=== PATIENT | female | born 1975 | race Caucasian/White ===

== ENCOUNTER → 2017-04-26 | Outpatient (CLI) | payer MEDICAID ==
[~2017-04-26] MED LIST: BENZ100C23; BREX0.5T; CEFU250T80; CITA20TA7; FAMO20TA5 PO; GADOBUTROL 10 MMOL/10 ML (GADAVIST) VIAL IV ONE; HYDR-757 PO; IBUP-2055; IBUP800T26 PO; METH4TAB PO; NAPR250T PO; NITR-65 PO; PRED20TA PO; SULF1TAB35 PO; TRAM50TA2 PO; TRAZ150T72
--- NOTE | 2017-04-26 17:24 | Diagnostic Imaging Report ---
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 COMPARISONS: None available at the time of dictation. TECHNIQUE: Pre and post contrast multisequence MRI brain and orbits was obtained using a 1.5 Dorie magnet. FINDINGS: The supratentorial midline structures are not displaced. Lateral, third and fourth ventricles are normal in size, shape, and anatomic position. There are a few scattered areas of nonspecific white matter changes in the occipital region. Killian-white differentiation is well maintained. There is no sulcal effacement. There is an extra-axial mass extending from the right cavernous sinus extending into the right orbital apex. This does displace the right carotid siphon medially. This measures approximately 18 mm x 2 cm x 11 mm. The anterior aspect of the lesion extends into the right orbital apex. This does have mass effect on the right optic nerve. This enhances after the administration of gadolinium. Similar area of abnormal T1 and T2 signal with post contrast enhancement is seen extending from the left cavernous sinus anteriorly into the left orbital apex with slight mass effect on the left optic nerve. There are no abnormal extra-axial fluid collections or hemorrhage. No areas of diffusion restriction or diffusion signal abnormalities seen. The petrous apices as well as the seventh and eighth nerve complexes are normal. The semicircular canal and cochlea show normal signal. Visualized vascular flow voids are otherwise grossly unremarkable. The craniovertebral junction shows some very mild cerebellar tonsillar ectopia but no evidence of a Chiari malformation. The sellar and suprasellar regions are unremarkable. The pituitary infundibulum is normal. The optic chiasm and optic nerves are grossly unremarkable prior to the orbital apex. Both globes are otherwise normal. Sinuses show some mild chronic maxillary sinus disease. Mastoid air cells are unremarkable. IMPRESSION: 1. Unremarkable pre and post contrast MRI brain. 2. There is an ill-defined enhancing mass in the right cavernous sinus with measurements given above. The lesion extends into the orbital apex. The smaller lesion with similar signal and enhancement characteristics is seen in the left cavernous sinus extending into the lateral aspect of the left orbital apex. There is associated mass effect on both optic nerves. The signal and enhancement characteristics as well as the appearance of this mass lesion suggest possible process such as sarcoid, granulomatous disease. A meningioma is also within the differential. 3. Mild chronic maxillary sinus disease. Dictated by: Dictated on workstation # [id number]
== END ==
LOC: RAD 15:28
PROVIDERS: ATTEND Optometrist
DX: H47.211 Primary optic atrophy, right eye (principal)
CPT/HCPCS: 70553

== ENCOUNTER 2018-02-24 12:27 | Outpatient (RCR) | payer MEDICAID ==
[~2018-02-24 12:27] MED LIST changes: +BENZ-36; -BENZ100C23; -CITA20TA7; +CITA20TA9; -GADOBUTROL 10 MMOL/10 ML (GADAVIST) VIAL IV ONE
== END 2018-04-03 | disposition home or self-care (01) ==
LOC: ONC 12:27
PROVIDERS: ATTEND Radiology Radiation Oncology
DX: Z51.0 Encounter for antineoplastic radiation therapy (principal); D32.9 Benign neoplasm of meninges, unspecified
CPT/HCPCS: 77295; 77300; 77332; 77334; 77336; 77417; 99204

== ENCOUNTER 2018-04-15 13:37 | Outpatient (RCR) | payer MEDICAID | END 2018-07-14 | disposition home or self-care (01) | LOC: ONC 13:37 | PROVIDERS: ATTEND Radiology Radiation Oncology | DX: D32.9 Benign neoplasm of meninges, unspecified (principal) | CPT/HCPCS: 99213 ==

== ENCOUNTER → 2018-07-16 | Outpatient (CLI) | payer MEDICAID ==
[~2018-07-16] MED LIST changes: +GADOBUTROL 10 MMOL/10 ML (GADAVIST) VIAL IV ONE
--- NOTE | 2018-07-16 12:35 | Diagnostic Imaging Report ---
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 Last MRI is after second brain surgery. Exam: MRI of the brain and orbits performed without and with 8 cc Gadavist IV contrast. Sequences include axial DWI, ADC map, axial T2, axial FLAIR, axial T1, axial gradient echo, coronal T2 fat-sat thin, axial T1 thin, axial T1 thin, coronal T1 thin, axial T1 fat-sat thin post IV contrast, coronal T1 fat-sat thin post IV contrast, right and left sagittal T1 fat-sat post IV contrast fat-sat, axial T1 post IV contrast whole brain, coronal T1 fat-sat post IV contrast whole brain, and sagittal T1 post IV contrast whole brain. Comparison: Outside MRI of the brain and orbits performed without and with IV contrast dated 10/17/2017 from [facility]. Images are loaded onto the PACS system. Findings: Again seen postop changes with craniotomies involving the right and left sides of the skull involving the temporal bone, left pterion, and sphenoid bone regions. Given the differences in technique, there is stable lobulated enhancing masses near the region of the orbital apices, bilateral sphenoid wings, laterally adjacent to the left cavernous sinus region, and involving the right cavernous sinus region and medial aspect of the right middle cranial fossa. 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 This right sided mass measures 3.8 cm x 1.8 cm x 1.8 cm (AP x Trans x CC). This mass is measured on series 12, image 15 for the AP dimension, series 12, image 6 for the transverse dimension, and series 13, image 8 the craniocaudal dimension. Of note, the transverse dimension may possibly include components of venous enhancement of the right cavernous sinus. There is stable slight medial displacement of the right cavernous carotid artery which is patent. There is enhancement and tumor extension seen along the right foramen ovale which is also widened and right foramen rotundum. There is also enhancing tumor infiltration of the right pterygopalatine fossa. There is concern for stable tumor extension within the right lateral aspect of the sphenoid sinus. There is stable appearing severe distortion of the optic nerves in the region of the orbital apex and posterior intraorbital regions due to the mass effect. There is no significant abnormal signal involving the optic nerves. Given the differences in technique, there is no significant change in appearance to the avidly enhancing mass involving the lateral left orbital apex which measures 1.7 cm x 0.8 cm x 1.0 cm (AP x Trans x CC). This is measured on series 12, image 6 in the AP and transverse dimensions, and series 13, image 13 in the craniocaudal dimension. There are small areas of high T2 signal involving the lateral left frontal low basilar region and anterior aspects of the bilateral temporal lobes with some encephalomalacia related to postop changes. There is multiple focal areas of high T2 signal white matter changes throughout both cerebral hemispheres again seen. There is no evidence of acute intracranial process. The [place] vascular structures show no gross abnormality as visualized. Besides postop changes, the extra cranial soft tissue shows no significant abnormality. There is mild mucosal thickening involving the ethmoid sinus and both maxillary sinuses. There is minimal fluid in the right mastoid air cell region. Impression: 1: Again seen postop changes to the right and left anterior aspects of the skull and skull base related to previous tumor debulking in the skull base and orbital apex regions. These findings are described in detail above. 2: Given the differences in technique, there is no significant change in size of the avidly enhancing masses involving the bilateral orbital apex regions and right para-cavernous/cavernous sinus region and right medial middle cranial fossa region. There is stable extension of enhancement into the right foramen ovale, right foramen rotundum, and extension into the right pterygopalatine fossa. The right cavernous carotid artery is patent. Dictated by: Dictated on workstation # [id number]
== END ==
LOC: RAD 10:20
PROVIDERS: ATTEND Radiology Radiation Oncology
DX: D32.0 Benign neoplasm of cerebral meninges (principal); Z98.890 Other specified postprocedural states
CPT/HCPCS: 70553

== ENCOUNTER → 2019-02-12 | Outpatient (CLI) | payer MEDICAID ==
[~2019-02-12] MED LIST changes: +HYDR-4226 PO; -HYDR-757 PO
--- NOTE | 2019-02-12 11:16 | Diagnostic Imaging Report ---
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 EXAM: MRI of the brain performed without and with 9 cc of Gadavist IV contrast. Sequences include axial DWI, ADC map, coronal gradient echo, axial T2, axial FLAIR, axial T1, axial T1 post IV contrast, coronal T1 fat-sat post IV contrast, and sagittal T1 post IV contrast. Additional axial FSPGR postcontrast sequence was obtained. COMPARISON: MRI of the brain/orbits dated 07/16/2018. FINDINGS: Given the differences in technique, there is no significant change to the lobulated enhancing mass in the region of the right para-cavernous/medial right middle cranial fossa which extends into the right orbital apex. This mass measures 3.8 cm x 1.8 cm x 1.8 cm (AP x Trans x CC) . There is stable significant encroachment upon the region of the right optic nerve in the region of the orbital apex. There is concern for right cavernous sinus invasion. The right cavernous carotid artery is patent. There is stable extension of this mass through the right foramen ovale, right pterygopalatine fossa, and involves the right sphenoid wing. There is stable lobulated and amorphous mass involving the posterior left lateral orbital wall/left sphenoid wing involving the left orbital apex laterally. This mass measures 1.7 cm x 0.8 cm x 1.0 cm (AP x Trans x CC). There are no new areas of abnormal IV contrast enhancement. Stable postop changes with right left skull craniotomies and mild dural enhancement. There is no significant change to the high T2 signal encephalomalacia involving the anterior aspects of both temporal lobes and left basilar frontal lobe suspected to be related to postop changes. There is stable focal and patchy areas of high T2 signal white matter changes involving both cerebral hemispheres. The [place] vascular structures show no gross abnormality as visualized. The pituitary gland, sella, and suprasellar regions are unremarkable as visualized. There is no hydrocephalus, brain herniation, or midline shift. Basal cisterns are unremarkable. The extracranial soft tissue, skull, and orbits show no other significant abnormality. There is mild mucosal thickening involving both maxillary sinuses. There is minimal fluid in the right mastoid air cell again seen. IMPRESSION: 1: Stable enhancing mass involving the right orbital apex/right para-cavernous/cavernous sinus region and medial right middle cranial fossa region. There is stable extension into the right foramen ovale and pterygopalatine fossa. There is stable encroachment of the region of the optic nerves. There is concern for invasion of the right cavernous sinus. The right cavernous carotid artery is patent. 2: Stable enhancing mass involving the left orbital apex and left lateral sphenoid wing. 3: There are no new areas of abnormal IV contrast enhancement. 4: Stable postop changes, as described above. Dictated by: Dictated on workstation # [id number]
== END ==
LOC: RAD 09:10
PROVIDERS: ATTEND Radiology Radiation Oncology
DX: D32.0 Benign neoplasm of cerebral meninges (principal); Z98.890 Other specified postprocedural states
CPT/HCPCS: 70553

== ENCOUNTER 2023-05-03 00:53 | Emergency (ER) | payer MEDICAID ==
[~2023-05-03] VITALS: Ht 165.1 cm; Wt 113.0 kg
[~2023-05-03 00:53] MED LIST changes: -GADOBUTROL 10 MMOL/10 ML (GADAVIST) VIAL IV ONE; -IBUP-2055; +IBUP-2473; -SULF1TAB35 PO; +SULF1TAB38 PO; -TRAM50TA2 PO; +TRM50T PO
[2023-05-03 01:08] VITALS: BP 137/102
[2023-05-03] MEDS ORDERED: RX-MUPIROCIN (BACTROBAN) 2% OINT 22 GM TUBE TOP STA (01:19)
[2023-05-03] MEDS ORDERED: TETANUS,DIPTH,PERTUSS P/F (BOOSTRIX) 0.5 ML VIAL IM ONE (01:30)
[2023-05-03] MEDS ORDERED: RABIES IMMUNE GLOBULIN (KEDRAB) 1,500 UNITS/10 ML IM ONE (01:30)
[2023-05-03] MEDS ORDERED: KETOROLAC 60 MG/2 ML VIAL IM ONE (01:30)
[2023-05-03] MEDS ORDERED: RABIES VACCINE HUMAN DIPL CELL 1 ML/2.5 UNITS SYR INJ ONE (01:30)
[2023-05-03] MEDS ORDERED: AUGMENTIN 875 MG TAB (AMOXICILLIN/CLAVULANATE) PO SCH (01:30)
--- NOTE | 2023-05-03 01:35 | ED Lower Extremity ---
General Chief Complaint: Bite-Animal/Human/Insect Stated Complaint: DOG BITE,LEFT LEG Nursing Triage Note: TO ED VIA POV AND W/C TO ROOM 7 WITH C/O BITE FROM [id number]'S PITTBULL APPROX 1H CUSHION STUFFER TO POSTERIOR LEFT THIGH. Source: patient History of Present Illness Date Seen by Provider: May 03, 2023 Time Seen by Provider: 01:13 Initial Comments PT ARRIVES VIA POV FROM HOME PT STATES ABOUT AN HOUR AGO, SHE WAS BITTEN ON HER LEFT POSTERIOR THIGH BY HER [id number] DOG--A PIT BULL PT STATES SHE WALKED OUT OF THE BEDROOM AND WAS GOING TO THE KITCHEN AND THE DOG STARTED TO DAVID HER AND BIT THE BACK OF HER LEG--ALLEGEDLY AN UNPROVOKED ATTACK. PT STATES THE DOG IS ALWAYS AN AGGRESSIVE DOG. PT STATES THE DOG HAS NOT HAD ANY VACCINES PT'S LAST TETANUS SHOT IS UNKNOWN PT DENIES ANY SIGNIFICANT MEDICAL PROBLEMS SHE DOES ADMIT TO DAILY METHAMPHETAMINE USE. PCP: JACKELINE. DR. ARTHUR Allergies and Home Medications Allergies Coded Allergies: aspirin (Verified Allergy, Unknown, RASH, 01/03/15) Patient Home Medication List Home Medication List Reviewed: Yes Amoxicillin/Potassium Clav (Amox Tr-K Clv 875-125 mg Tab) 875 Mg-125 Mg Tablet, 1 EACH PO BID Prescribed by: ESTRELLA SIM on 05/03/23 0150 Benzonatate (Benzonatate) 100 Mg Capsule, (Reported) Entered as Reported by: ADRI LYONS on 01/01/16 1001 Brexpiprazole (Rexulti) 0.5 Mg Tablet, (Reported) Entered as Reported by: ADRI LYONS on 01/01/16 1001 Cefuroxime Axetil (Cefuroxime) 250 Mg Tablet, (Reported) Entered as Reported by: ADRI LYONS on 01/01/16 1001 Citalopram Hydrobromide (Citalopram HBr) 20 Mg Tablet, (Reported) Entered as Reported by: ADRI LYONS on 01/01/16 1001 Hydrocodone/Acetaminophen (Hydrocodone/Acetaminophen 5 MG/325 MG TAB) 1 Each Tablet, 1 EACH PO Q4H PRN for PAIN Prescribed by: CHERRI DURHAM on 01/01/16 1100 Ibuprofen (Ibuprofen) 200 Mg Tablet, (Reported) Entered as Reported by: ADRI LYONS on 01/01/16 1001 Ketorolac Tromethamine (Ketorolac Tromethamine) 10 Mg Tablet, 10 MG PO Q6H Prescribed by: EBONY PENNY on 05/03/23 1612 Methylprednisolone (Medrol) 4 Mg Tab.ds.pk, 4 MG PO UD Prescribed by: CHERRI DURHAM on 01/01/16 1100 Mupirocin (Mupirocin) 2 % Oint...g., 22 GM TP BID Prescribed by: ESTRELLA SIM on 05/03/23 0150 Trazodone HCl (Trazodone HCl) 150 Mg Tablet, (Reported) Entered as Reported by: ADRI LYONS on 01/01/16 1001 Discontinued Medications Ketorolac Tromethamine (Ketorolac Tromethamine) 10 Mg Tablet, 10 MG PO Q6H Prescribed by: ESTRELLA SIM on 05/03/23 0150 Review of Systems Constitutional: no symptoms reported Musculoskeletal: see HPI Skin: see HPI Psychiatric/Neurological: No Symptoms Reported Past Dmspyus-Pwcocf-Rvbshz Hx Patient Social History Tobacco Use?: No Additional E-Cig or Vaping: DENIES Substance use?: Yes Substance type: Methamphetamine, Marijuana Additional substance use comme: STATES SHE SMOKES METH Substance frequency: Daily Alcohol Use?: Yes Alcohol Frequency: Once in a while Immunizations Up To Date Tetanus Booster (TDap): More than 5yrs Seasonal Allergies Seasonal Allergies: No Past Medical History Surgeries: Yes Adenoidectomy, Tonsillectomy Respiratory: No Cardiac: Yes Chronic Edema/Swelling, Hypertension Neurological: No Gastrointestinal: Yes Diverticulosis Musculoskeletal: Yes Degenerate Disk Disease, Scoliosis, Chronic Back Pain Endocrine: Yes (OBESITY) HEENT: Yes (POOR DENTITION) Psychosocial: Yes (SUBSTANCE ABUSE) Anxiety, Bipolar, Depression Integumentary: No Adverse Reaction/Blood Tranf: No Family Medical History No Pertinent Family Hx Physical Exam Vital Signs Vital Signs - First Documented 05/03/23 01:08 Temp 37.4 Pulse 111 Resp 16 B/P (MAP) 137/102 (114) Pulse Ox 97 O2 Delivery Room Air Capillary Refill : Less Than 3 Seconds Height, Weight, BMI Height: 5'5" Weight: 206lbs. oz. 93.817470mb; 41.00 BMI Method:Stated General Appearance: WD/WN, no apparent distress, obese, other (PT IS RELATIVELY CALM AND COOPERATIVE. ) HEENT: other (EXTENSIVE DENTAL DECAY--NEARLY ALL TEETH DECAYED DOWN TO GUMS) Cardiovascular: regular rate, rhythm, no murmur Respiratory: normal breath sounds Hips: bilateral hip normal inspection Legs: right leg normal inspection; left leg other (LEFT POSTERIOR THIGH WITH 10X12 CM HEMATOMA WITH OVERLYING SUPERFICIAL ABRASIONS, AND A 2 CM LACERATION. THERE IS NO ACTIVE BLEEDING AT THIS TIME. MOTOR/SENSORY/VASCULAR INTACT. BOTH LOWER LEGS WITH 1-2+ EDEMA AND CHRONIC VENOUS STASIS CHANGES WITH BRAWNY DISCOLORATION AND INDURATION. ) Knees: bilateral knee normal inspection Ankles: bilateral ankle normal inspection Feet: bilateral foot normal inspection Neurologic/Tendon: normal sensation, normal motor functions, normal tendon functions Neurologic/Psychiatric: relay dispatcher II-XII nml as tested, no motor/sensory deficits, alert, oriented x 3 Skin: normal color, warm/dry, tattoos/piercings (MULTIPLE TATTOOS), other ( ABOVE) Progress/Results/Core Measures Results/Orders My Orders Orders - ESTRELLA SIMtJerry(Acell),Tet Adult (Boostrix (05/03/23 01:30) Rabies Vaccine Human Dipl Cell (Rabavert (05/03/23 01:30) Rabies Immune Globulin/Pf 10ml (Kedrab 1 (05/03/23 01:30) Rx-Mupirocin 2% Oint (Rx-Bactroban) (05/03/23 01:19) Amoxicillin/Clavulanate Tablet (Augmenti (05/03/23 01:30) Ketorolac Injection (Toradol Injection) (05/03/23 01:30) Wound Dressing-Ed (05/03/23 01:24) Vital Signs/I&O 05/03/23 01:08 Temp 37.4 Pulse 111 Resp 16 B/P (MAP) 137/102 (114) Pulse Ox 97 O2 Delivery Room Air Blood Pressure Mean: 114 Progress Progress Note : Progress Note WOUNDS THOROUGHLY CLEANSED WITH BETADINE, AND THOROUGHLY IRRIGATED WITH STERILE SALINE THE LACERATION IS NOT BLEEDING OR SIGNIFICANTLY GAPING AND WILL NOT BE SUTURED. AREA DRESSED WITH BACTROBAN AND GAUZE. ICE PACK PLACED ON THE AREA RABIES IMMUNOGLOBULIN INJECTED IN AND AROUND THE BITE, AND RABIES VACCINATION GIVEN PT INSTRUCTED ON RETURN DATES TO COMPLETE THE RABIES SERIES. DPT VACCINATION ALSO GIVEN DISCUSSED ANTICIPATED COURSE, SYMPTOMATIC TREATMENT, WOUND CARE, MEDICATIONS, RABIES VACCINE SERIES, IMPORTANCE OF FOLLOW UP WITH PCP FOR WOUND CHECK, AND RETURN PRECAUTIONS REVIEWED PRIOR RECORDS--ALL ER VISITS. Departure Impression Primary Impression: DOG BITE LEFT POSTERIOR THIGH Additional Impressions: Sronggkufv-yygtiwrlw-gwkbbfd (DPT) vaccination administered at current visit RABIES VACCINE ADMINISTRATION Disposition: HOME, SELF-CARE Condition: Stable Departure-Patient Inst. Decision time for Depature: 01:35 Referrals: ROLAN ARTHUR MD (PCP) Primary Care Physician [facility] (Family) Primary Care Physician Patient Instructions: Animal Bites (DC), Diphtheria and Tetanus Toxoids, and Acellular Pertussis Vaccine, Rabies Vaccine CDC Vaccine Information Statement (VIS) Add. Discharge Instructions: CLEAN WOUND TWICE A DAY WITH ANTIBACTERIAL SOAP AND WATER, APPLY BACTROBAN OINTMENT AND FRESH DRESSING TO WOUND TWICE A DAY COMPLETE THE RABIES VACCINE SERIES, RETURN ON DAYS 3, 7, 14 AND 28 --GO TO OUTPATIENT REGISTRATION TO HAVE THIS DONE. DAY 3 WILL BE ON SaturdayMAY 06 DAY 7 WILL BE ON SaturdayMAY 10 DAY 14 WILL BE ON SaturdayMAY 17 DAY 28 WILL BE ON SaturdayMAY 31 YOU NEED TO FOLLOW UP WITH [facility] IN 1-2 DAYS FOR WOUND CHECK YOU MAY TAKE TYLENOL 1 GRAM 4 TIMES A DAY FOR PAIN RETURN TO ER IF YOUR SYMPTOMS WORSEN All discharge instructions reviewed with patient and/or family. Voiced understanding. Scripts Ketorolac Tromethamine (Ketorolac Tromethamine) 10 Mg Tablet 10 MG PO Q6H, #15 TAB Prov: DANIEL LANCE 05/03/23 Mupirocin (Mupirocin) 2 % Oint...g. 22 GM TP BID, #1 TUBE Prov: ESTRELLA SIM DO 05/03/23 Amoxicillin/Potassium Clav (Amox Tr-K Clv 875-125 mg Tab) 875 Mg-125 Mg Tablet 1 EACH PO BID for 10 Days, #20 TAB Prov: ESTRELLA SIM DO 05/03/23 ESTRELLA SIM DO May 03, 2023 01:35
[2023-05-03] MEDS ORDERED: MUPI22OI2 TP (01:50)
[2023-05-03] MEDS ORDERED: AMOX1TAB12 PO (01:50)
[2023-05-03] MEDS ORDERED: KETO10TA PO ×2 (01:50→16:12)
== END 2023-05-03 02:38 | disposition home or self-care (01) ==
LOC: EDUNIT# 00:53 → ER 00:58
DX: S71.112A Laceration without foreign body, left thigh, initial encounter (principal); E66.9 Obesity, unspecified; Z68.41 Body mass index [BMI] 40.0-44.9, adult; Z23 Encounter for immunization; Z88.6 Allergy status to analgesic agent; Z28.310 Unvaccinated for COVID-19; W54.0XXA Bitten by dog, initial encounter; Y92.000 Kitchen of unspecified non-institutional (private) residence as the place of occurrence of the external cause
CPT/HCPCS: 90675; 90676; 90715; 99284

== ENCOUNTER 2023-05-06 13:10 | Outpatient (RCR) | payer MEDICAID ==
[~2023-05-06] VITALS: Ht 165.1 cm; Wt 108.2 kg
[~2023-05-06 13:10] MED LIST changes: +AMOX1TAB12 PO; +KETO10TA PO; +MUPI22OI2 TP
[2023-05-06 13:15] VITALS: BP 128/80
[2023-05-06] MEDS ORDERED: RABIES VACCINE HUMAN DIPL CELL 1 ML/2.5 UNITS SYR INJ ONE (13:45)
[2023-05-10] MEDS ORDERED: RABIES VACCINE HUMAN DIPL CELL 1 ML/2.5 UNITS SYR INJ ONE (12:00)
[2023-05-17] MEDS ORDERED: RABIES VACCINE HUMAN DIPL CELL 1 ML/2.5 UNITS SYR INJ ONE (12:00)
[2023-05-31] MEDS ORDERED: RABIES VACCINE HUMAN DIPL CELL 1 ML/2.5 UNITS SYR INJ ONE (12:00)
== END 2023-05-31 | disposition home or self-care (01) ==
LOC: SDC 13:10
PROVIDERS: ATTEND Emergency Medicine
DX: Z20.3 Contact with and (suspected) exposure to rabies (principal); Z23 Encounter for immunization
CPT/HCPCS: 90471; 90675

== ENCOUNTER 2023-10-05 16:26 | Emergency (ER) | payer MEDICAID ==
[~2023-10-05] VITALS: Ht 165 cm; Wt 104.0 kg
[2023-10-05] MEDS ORDERED: KETOROLAC INJ 15 MG/ML VIAL IVP ONE (17:00)
[2023-10-05 17:01] LABS: BASOPHILS # (AUTO) 0.1 10^3/uL (0.0-0.1); BASOPHILS % (AUTO) 1 % (0-10); EOSINOPHILS # (AUTO) 0.2 10^3/uL (0.0-0.3); EOSINOPHILS % (AUTO) 3 % (0-10); HEMATOCRIT 37 % (35-52); LYMPHOCYTES # (AUTO) 1.8 10^3/uL (1.0-4.0); LYMPHOCYTES % (AUTO) 26 % (12-44); MEAN CORPUSCULAR HEMOGLOBIN 32 pg (25-34); MEAN CORPUSCULAR HGB CONC 33 g/dL (32-36); MEAN CORPUSCULAR VOLUME 97 fL (80-99); MEAN PLATELET VOLUME 10.7 fL (9.0-12.2); MONOCYTES # (AUTO) 0.6 10^3/uL (0.0-1.0); MONOCYTES % (AUTO) 9 % (0-12); NEUTROPHILS # (AUTO) 4.2 10^3/uL (1.8-7.8); NEUTROPHILS % (AUTO) 61 % (42-75); PLATELET COUNT 316 10^3/uL (130-400); WHITE BLOOD COUNT 6.9 10^3/uL (4.3-11.0)
[2023-10-05 17:03] LABS: ALBUMIN 4.1 GM/DL (3.2-4.5)
[2023-10-05 17:04] LABS: CHLORIDE 107 MMOL/L (98-107); POTASSIUM 3.3 MMOL/L (3.6-5.0); SODIUM 141 MMOL/L (135-145)
[2023-10-05 17:05] LABS: CALCIUM 9.4 MG/DL (8.5-10.1)
[2023-10-05 17:06] LABS: GLUCOSE 83 MG/DL (70-105); TOTAL PROTEIN 7.4 GM/DL (6.4-8.2)
[2023-10-05 17:07] LABS: CARBON DIOXIDE 23 MMOL/L (21-32)
[2023-10-05 17:08] LABS: BILIRUBIN,TOTAL 0.7 MG/DL (0.1-1.0)
[2023-10-05 17:09] LABS: ALKALINE PHOSPHATASE 79 U/L (40-136); INR 1.2 (0.8-1.4); PROTHROMBIN TIME PATIENT 15.3 SEC (12.2-14.7)
[2023-10-05 17:10] LABS: CREATININE SERUM 0.87 MG/DL (0.60-1.30); GFR ESTIMATED 84
[2023-10-05 17:11] LABS: BUN/CREATININE RATIO 20
[2023-10-05 17:12] LABS: FIBRIN DEGRADATION PRODUCTS 1.05 UG/ML (0.00-0.49)
[2023-10-05 17:13] LABS: ALANINE AMINOTRANSFERASE 16 U/L (0-55); MAGNESIUM 2.2 MG/DL (1.6-2.4)
[2023-10-05] MEDS ORDERED: NS IV 1000 ML 1,000 ML IV SCH (17:15)
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
--- NOTE | 2023-10-05 17:32 | Diagnostic Imaging Report ---
EXAMINATION: Chest, 1 view. HISTORY: Chest pain. COMPARISON: 01/03/2015. FINDINGS: Heart size and pulmonary vasculature are normal. The lungs are clear without consolidation, pleural effusion, or pneumothorax. Degenerative changes of the thoracic spine. Osseous structures are otherwise intact. IMPRESSION: No acute radiographic abnormality in the chest. Dictated by: Dictated on workstation # [id number]
[2023-10-05] MEDS ORDERED: IOHEXOL 350 MG/ML 100 ML (OMNIPAQUE 350) VIAL IV ONE (18:00)
[2023-10-05] MEDS ORDERED: NS 100 ML (IVPB) BAG IV ONE (18:00)
[2023-10-05] MEDS ORDERED: HOLD METFORMIN - RECEIVED CONTRAST 20 ML VIAL IV SCH (18:00)
--- NOTE | 2023-10-05 18:26 | Diagnostic Imaging Report ---
EXAMINATION: CT angiography of the chest. TECHNIQUE: Contrast enhanced thin section helical images were obtained through the chest with intravenous contrast timed for the optimal opacification of the arterial structures per CTA protocol. Post-processing, reconstructions and interpretation of angiographic images of the vessels was performed. 3D MIP reconstructions were performed and reviewed. All CT scans use one or more of the following dose optimizing techniques: automated exposure control, MA and/or KvP adjustment based on a patient size and exam type, or iterative reconstruction. HISTORY: CP, SOA, elevated d-dimer, tachycardia COMPARISON: None available. FINDINGS: Vascular: There are no filling defects seen within the main or proximal pulmonary arteries. Evaluation of the distal pulmonary arteries is limited secondary to respiratory motion. The thoracic aorta is normal in caliber. Thyroid: The thyroid is normal. Mediastinum: Heart size is normal without significant pericardial effusion. No suspicious lymphadenopathy. Lungs and airways: The lungs are clear without consolidation, pleural effusion, or pneumothorax. There is atelectasis at the lung bases. The airways are normal. Upper abdomen: There is cholelithiasis present. Musculoskeletal: Degenerative changes of the spine without suspicious osseous lesion or compression fracture. IMPRESSION: 1. No findings of pulmonary embolus within the main or proximal pulmonary arteries. Evaluation of the distal arteries is limited secondary to respiratory motion artifact. There is heterogeneous appearance of the distal airways predominantly within the lower lobes which could obscure small pulmonary emboli. 2. No other acute abnormality in the chest. Dictated by: Dictated on workstation # [id number]
[2023-10-05] MEDS ORDERED: POTASSIUM CHLORIDE 20 MEQ TABLET PO ONE (18:45)
[2023-10-05 19:06] VITALS: BP 160/97
== END 2023-10-05 19:06 | disposition home or self-care (01) ==
LOC: EDUNIT# 16:26 → ER 16:28
DX: R07.89 Other chest pain (principal); E87.6 Hypokalemia; V43.62XA Car passenger injured in collision with other type car in traffic accident, initial encounter; Y92.410 Unspecified street and highway as the place of occurrence of the external cause
CPT/HCPCS: 36415; 71045; 71275; 80053; 83735; 83880; 84484; 85025; 85379; 85610; 85730; 93005; 96374